=== PATIENT | female | born 1980 | race Hispanic/Latino ===

== ENCOUNTER 2021-02-08 16:59 | Emergency (ER) | payer SELFPAY ==
[2021-02-08 17:41] LABS: #Lymphocytes 0.9 thou/uL (1.20-3.40); #Monocytes 0.3 thou/uL (0.11-0.59); #Neutrophils 14.9 thou/uL (1.40-6.50); %Basophils 0.2 % (0.0-1.0); %Eosinophils 0.1 % (0.0-10.0); %Lymphocytes 5.4 % (21.0-51.0); %Monocytes 1.6 % (0.0-10.0); %Neutrophils 92.7 % (42.0-75.0); Hemoglobin 14.1 g/dL (12.0-16.0); Mean Corpuscular HGB CONC 35.7 g/dL (32.0-36.0); Mean Corpuscular Hemoglobin 32.5 pg (27.0-31.0); Platelet Count 274 thou/uL (130-400); RBC Distribution Width 11.1 % (11.5-14.5); Red Blood Cell (RBC) Count 4.35 mill/uL (4.20-5.40)
[2021-02-08 18:02] LABS: ALT (SGPT) 14 U/L (8-55); AST (SGOT) 18 U/L (5-34); Albumin 4.5 g/dL (3.5-5.0); Alkaline Phosphatase 45 U/L (40-110); Anion Gap 15 mmol/L (10-20); BUN (Urea Nitrogen) 16 mg/dL (7.0-18.7); Bilirubin, Total 2.6 mg/dL (0.2-1.2); Calc. Creatinine Clearance 0 mL/min (70-130); Calcium 10.1 mg/dL (7.8-10.44); Carbon Dioxide 23 mmol/L (22-29); Chloride 106 mmol/L (98-107); Globulin 2.8 g/dL (2.4-3.5); Glucose 112 mg/dL (70-105); Lipase 12 U/L (8-78); Protein, Total 7.3 g/dL (6.0-8.3); Sodium 140 mmol/L (136-145)
== END 2021-02-08 18:17 | disposition left against medical advice (07) ==
LOC: ERS 16:59
DX: Z53.21 Procedure and treatment not carried out due to patient leaving prior to being seen by health care provider (principal)
CPT/HCPCS: 36415; 80053; 83690; 85025; 93005

== ENCOUNTER 2021-02-13 15:48 | Outpatient (CLI) | payer SELFPAY ==
[2021-02-13 17:06] LABS: INR-International Normal Ratio 1.1; PTT 25.9 sec (22.0-33.0); Prothrombin Time 11.9 sec (9.5-12.1)
[2021-02-14 16:49] LABS: SARS-CoV-2 PCR by NAA Not Detected (NotDetected)
== END 2021-02-13 15:49 | disposition home or self-care (01) ==
LOC: LABBT 15:48
PROVIDERS: ATTEND Urology
DX: Z01.818 Encounter for other preprocedural examination (principal); N20.0 Calculus of kidney; Z20.822 Contact with and (suspected) exposure to COVID-19
CPT/HCPCS: 84702; 85610; 85730; U0003; U0005

== ENCOUNTER 2021-02-18 08:16 | Day surgery (SDC) | payer OTHER, SELFPAY ==
[2021-02-17 10:33] VITALS: BMI 23.2
[2021-02-18] MEDS ORDERED: Sodium Chloride 0.9% 100 ML ONE (08:34)
[2021-02-18] MEDS ORDERED: cefTRIAXone\\ROCEPHIN 2 GM VIAL ONE (08:34)
[2021-02-18] MEDS ORDERED: Iothalamate Meglumine 60% 50 ML VIAL FS ONE (09:10)
[2021-02-18] MEDS ORDERED: Lidocaine 1% PF 5 ML VIAL ONE (10:00)
[2021-02-18] MEDS ORDERED: Dexamethasone 20 MG/5 ML VIAL ONE (10:00)
[2021-02-18] MEDS ORDERED: Ondansetron PF 4 MG/2 ML Vial ONE ×2 (10:00→10:05)
[2021-02-18] MEDS ORDERED: PROPOFOL 200 MG/20 ML VIAL ONE (10:00)
[2021-02-18] MEDS ORDERED: Fentanyl 100 MCG/2 ML VIAL ONE ×2 (10:05→11:15)
[2021-02-18] MEDS ORDERED: Midazolam HCl 2 mg/2 ml Vial ONE (10:05)
[2021-02-18] MEDS ORDERED: ePHEDrine Sulfate 50 MG/10 ML VIAL ONE (11:03)
[2021-02-18] MEDS ORDERED: Phenazopyridine HCl 100 MG TAB ONE ×2 (11:15)
[2021-02-18] MEDS ORDERED: Oxybutynin 5 MG TAB ONE (11:16)
[2021-02-18] MEDS ORDERED: HYDROcodone/Acetaminophen 5/325 mg Tablet ONE (12:52)
== END 2021-02-18 13:15 | disposition home or self-care (01) ==
LOC: SDC 08:16
PROVIDERS: ATTEND Urology
PROC: 0T768DZ Dilation of Right Ureter with Intraluminal Device, Via Natural or Artificial Opening Endoscopic (ICD-10-PCS; principal; 2021-02-18)
PROC: 0TC68ZZ Extirpation of Matter from Right Ureter, Via Natural or Artificial Opening Endoscopic (ICD-10-PCS; principal; 2021-02-18)
DX: N13.2 Hydronephrosis with renal and ureteral calculous obstruction (principal); D72.829 Elevated white blood cell count, unspecified; Z79.2 Long term (current) use of antibiotics
CPT/HCPCS: 74018; 74420; 82365; 88300; C2617; J0696; J1100; J2250; J2405; J2704; J3010; J3490; Q9961-U8

== ENCOUNTER 2023-07-28 15:33 | Outpatient (CLI) | payer BC | END 2023-07-28 15:34 | disposition home or self-care (01) | LOC: BICMAMMO 15:33 | PROVIDERS: ATTEND Family Medicine | DX: Z12.31 Encounter for screening mammogram for malignant neoplasm of breast (principal) | CPT/HCPCS: 77063; 77067 ==